=== PATIENT | female | born 1990 | race African-American/Black ===

== ENCOUNTER 2018-07-28 17:04 | Emergency (ER) | payer BC, MEDICAID ==
[~2018-07-28] VITALS: Ht 162.6 cm; Wt 85.0 kg
[2018-07-28 17:21] VITALS: BP 116/68
[2018-07-28] MEDS ORDERED: PRENATAL (17:24)
== END 2018-07-28 21:00 | disposition left against medical advice (07) ==
LOC: ER 17:04
DX: N93.9 Abnormal uterine and vaginal bleeding, unspecified (principal); Z53.21 Procedure and treatment not carried out due to patient leaving prior to being seen by health care provider